=== PATIENT | female | born 1955 | race Asian ===

== ENCOUNTER 2020-09-19 13:39 | Outpatient (CLI) | payer OTHER | END 2020-09-19 23:03 | disposition home or self-care (01) | LOC: US 13:39 → EDBD 09-24 09:00 → MAMMO 09-24 09:00 | PROVIDERS: ATTEND Nurse Practitioner Primary Care | DX: Z12.31 Encounter for screening mammogram for malignant neoplasm of breast (principal); E04.8 Other specified nontoxic goiter ==

== ENCOUNTER 2021-06-22 08:46 | Outpatient (CLI) | payer OTHER | END 2021-06-22 18:47 | disposition home or self-care (01) | LOC: US 08:46 | PROVIDERS: ATTEND Family Medicine | DX: D17.39 Benign lipomatous neoplasm of skin and subcutaneous tissue of other sites (principal); F03.90 Unspecified dementia, unspecified severity, without behavioral disturbance, psychotic disturbance, mood disturbance, and anxiety ==